=== PATIENT | male | born 1965 | race African-American/Black ===

== ENCOUNTER 2017-11-14 21:52 | Emergency (ER) | payer OTHER ==
[~2017-11-14] VITALS: Ht 182.9 cm; Wt 86.2 kg
[~2017-11-14 21:52] MED LIST: ASPI-484 PO; ATOR40TA PO; CARV6.25 PO; CLOP75TA52 PO; DIGO125T PO; LISI-414 PO; LISI10TA2 PO; SPIR25TA PO; SPIR50TA PO
[2017-11-14 21:53] VITALS: BP 138/109
--- NOTE | 2017-11-14 22:05 | PCM.EKG ---
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 Reading MD: Measurements Intervals [place] Rate: 93 P: 83 ME: 160 QRS: 72 QRSD: 100 T: 84 QT: 390 QTc: 484 Interpretive Statements Sinus rhythm Prolonged QT Abnormal ECG No previous ECG available for comparison Please click the below link to view image of tracing.
[2017-11-14 22:22] LABS: BASOPHIL % 0.6 % (0.0-0.2); EOSINOPHIL # 0.4 10^3/uL (0.0-0.2); EOSINOPHIL % 7.6 % (0.0-5.0); HEMOGLOBIN 13.6 g/dL (13.9-16.3); LYMPHOCYTES # 1.8 10^3/uL (1.0-4.8); LYMPHOCYTES % 34.7 % (24.0-44.0); MEAN CELL HGB 32.2 pg (26-34); MEAN CELL HGB CONCENTRATION 32.9 g/dL (33-37); MEAN CORP VOLUME 97.9 fL (78-100); MEAN PLATELET VOLUME 10.9 fL (7.8-11.0); MONOCYTES # 0.4 10^3/uL (0.3-0.8); NEUTROPHIL # 2.6 10^3/uL (1.8-7.7); NEUTROPHILS % 50.1 % (41.0-85.0); RED CELL DISTRIBUTION WIDTH 12.5 % (11.5-14.5); WHITE BLOOD CELL 5.3 10^3/uL (4.5-11.0)
--- NOTE | 2017-11-14 22:40 | DIREP ---
PROCEDURE:CHEST 1 VIEW COMPARISON:[facility], PAU, XRAY CHEST 2 VWS, 06/18/2017, 06:57 AM. [facility], CR, XRAY CHEST SINGLE VW, 10/20/2017, 11:18 AM. [facility], CR, XRAY CHEST SINGLE VW, 04/03/2016, 05:57 PM. INDICATIONS:Chest pain FINDINGS: LUNGS/PLEURA:No significant pulmonary parenchymal abnormalities. No effusions. VASCULATURE:Normal. Unremarkable pulmonary vasculature. CARDIAC: Heart shadow is enlarged but this is probably artifactual secondary AP technique. MEDIASTINUM:Normal. No visible mass or adenopathy. BONES:Normal. No fracture or visible bony lesion. OTHER:Negative. CONCLUSION: 1. No acute cardiopulmonary abnormality. Dictated by: Merrick Martinez Jr. on 11/14/2017 at 10:39 PM
[2017-11-14 23:04] LABS: ALANINE AMINOTRANSFERASE(ML) 21 U/L (12-78); ALKALINE PHOSPHATASE 69 U/L (50-136); ASPARTATE AMINO TRANSFERASE 13 U/L (0-35); CALCIUM 9.1 mg/dL (8.4-10.5); CARBON DIOXIDE 22.3 mmol/L (20.0-32); GLUCOSE 106 mg/dL (70-110)
--- NOTE | 2017-11-14 23:10 | NUR ---
DR ALIE ALEXANDER MBA SPEAKING WITH DR STRANGE , PATIENT TO BE DISCHARGED HOME , FOLLOW UP IN DR WANG OFFICE NEEDED
--- NOTE | 2017-11-14 23:20 | ER.PDOC ---
General Chief Complaint: Chest Pain-Cardiac Nature Stated Complaint: CHEST PAIN Time seen by MD: 22:00 Source: patient Exam Limitations: no limitations History of Present Illness Initial Comments Chest pain which started after patient was arrested. Timing/Duration: 1-3 hours Severity/Quality: moderate Radiation: no radiation Prior CP/Workup: Cardiac Cath Nitro Today/Relief: 0.4 mg x 1, No Relief Aspirin Today: 325 mg x 1, Provided By EMS Associated Symptoms: shortness of breath Prior symptoms/Treatment: Similar symptoms previous, Recenly Seen, Treated by Doctor Allergies: Coded Allergies: No Known Allergies (Unverified , 06/17/17) Home Meds Reported Medications Spironolactone 25MG (ALDACTONE 25MG) 25 Mg Tablet, 0.5 TAB PO DAILY, #90 TAB 1 Refill 06/17/17 Atorvastatin 40MG (LIPITOR 40MG) 40 Mg Tablet, 1 TAB PO DAILY, #30 TAB 5 Refills 07/27/16 Clopidogrel Bisulfate (PLAVIX) 75 Mg Tablet, 1 TAB PO DAILY, #30 TAB 5 Refills 07/27/16 Aspirin (ASPIR 81) 81 Mg Tablet.dr, 1 TAB PO DAILY, #30 TAB 5 Refills 07/27/16 Lisinopril (LISINOPRIL) 5 Mg Tablet, 1 TAB PO DAILY, #30 TAB 5 Refills 07/27/16 Carvedilol 6.25MG (COREG 6.25MG) 6.25 Mg Tablet, 1 TAB PO BID, #180 TAB 1 Refill 02/08/15 Digoxin (DIGOXIN) 125 Mcg Tablet, 1 TAB PO DAILY, #30 TAB 5 Refills 02/08/15 Past Medical History Medical History: cardiac problems, congestive heart failure, heart attack, hypertension Surgical History: stent Social History Smoking: non-smoker Alcohol Use: heavy Drug Use: none Constitutional: no symptoms reported EENTM: no symptoms reported Respiratory: see HPI Cardiovascular: see HPI Gastrointestinal: no symptoms reported Genitourinary: no symptoms reported All Other Systems: Reviewed and Negative Physical Exam General Appearance: No Apparent Distress, WD/WN HEENT: PERRL/EOMI Neck: Non-Tender, Full Range of Motion, Supple, Normal Inspection Respiratory: chest non-tender, lungs clear, normal breath sounds, no respiratory distress, no accessory muscle use Cardiovascular: Normal Peripheral Pulses, Regular Rate, Rhythm, No Edema, No Gallop, No JVD, No Murmur Gastrointestinal: Normal Bowel Sounds, No Organomegaly, No Pulsatile Mass, Non Tender, Soft Extremities: Normal Range of Motion, Non-Tender, Normal Inspection, No Pedal Edema, No Calf Tenderness, Normal Capillary Refill Neurologic/Psychiatric: 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 NML as Tested, No Motor/Sensory Deficits, Alert, Normal Mood/Affect, Oriented x 3 Skin: Normal Color Results/Orders Results/Orders Laboratory Tests Test 11/14/17 22:15 White Blood Count 5.3 10^3/uL (4.5-11.0) Red Blood Count 4.23 10^6/uL (4.50-5.90) Hemoglobin 13.6 g/dL (13.9-16.3) Hematocrit 41.4 % (37.0-53.0) Mean Corpuscular Volume 97.9 fL (78-100) Mean Corpuscular Hemoglobin 32.2 pg (26-34) Mean Corpuscular Hemoglobin Concent 32.9 g/dL (33-37) Red Cell Distribution Width 12.5 % (11.5-14.5) Platelet Count 185 10^3/uL (150-400) Mean Platelet Volume 10.9 fL (7.8-11.0) Neutrophils (%) (Auto) 50.1 % (41.0-85.0) Lymphocytes (%) (Auto) 34.7 % (24.0-44.0) Monocytes (%) (Auto) 7.0 % (5.0-12.0) Neutrophils # (Auto) 2.6 10^3/uL (1.8-7.7) Lymphocytes # (Auto) 1.8 10^3/uL (1.0-4.8) Monocytes # (Auto) 0.4 10^3/uL (0.3-0.8) Absolute Immature Granulocyte (auto 0 10^3 u/L (0-2) Eosinophils % 7.6 % (0.0-5.0) Basophils % 0.6 % (0.0-0.2) Basophils # 0.0 10^3/uL (0.0-0.1) Eosinophil Count 0.4 10^3/uL (0.0-0.2) Prothrombin Time 11.1 SEC (9.8-11.9) Prothrombin Time INR (Non-Therap) 1.1 Activated Partial Thromboplast Time 23.3 SEC (24.67-30.72) D-Dimer 0.45 mg/L (0.19-0.49) Sodium Level 141 mmol/L (132-145) Potassium Level 3.9 mmol/L (3.6-5.2) Chloride Level 107.0 mmol/L (96-109) Carbon Dioxide Level 22.3 mmol/L (20.0-32) Anion Gap 15.6 Blood Urea Nitrogen 15 mg/dL (7-18) Creatinine 1.14 mg/dL (0.59-1.40) Estimated GFR () 81.3 (>/=60) BUN/Creatinine Ratio 13.0 Glucose Level 106 mg/dL (70-110) Calcium Level 9.1 mg/dL (8.4-10.5) Total Bilirubin 0.5 mg/dL (0.2-1.0) Aspartate Amino Transf (AST/SGOT) 13 U/L (0-35) Alanine Aminotransferase (ALT/SGPT) 21 U/L (12-78) Alkaline Phosphatase 69 U/L (50-136) Total Creatine Kinase 128 U/L (39-308) Creatine Kinase MB 1.5 ng/mL (0.5-3.6) Troponin I < 0.02 ng/mL (0.00-0.05) Pro-B-Type Natriuretic Peptide 1511 pg/mL (0-125) Total Protein 7.3 g/dL (6.4-8.2) Albumin 3.6 g/dL (3.4-5.0) Globulin 3.7 Percent Immature Gran (Cell Imm) 0.00 % (0.00-0.50) Progress Progress Spoke to Dr. Pan who told me that patient has normal coronaries and should be good to go home. Patient recently saw him in the office last week. Patient feeling better. EKG/XRAY/CT/US EKG: NSR XRAY: chest (No active disease) Course Blood Pressure Systolic: 138 Blood Pressure Diastolic: 109 Blood Pressure Mean: 119 Departure Time of Disposition: 23:19 Disposition: 01 HOME, SELF-CARE Impression: Primary Impression: Nonspecific chest pain Condition: Stable Referrals: FARZAD KOWALSKI CEMENT [facility] APPRENTICE (PCP) PRIMARY CARE PROVIDER Additional Instructions: F/U with Dr. Pan next week Duration or Time Spent with Pa: 60 mins FILI ARANDA MD Nov 14, 2017 23:20
[2017-11-14 23:30] VITALS: BP 134/97
[2017-11-14 23:33] VITALS: BP 138/109
== END 2017-11-14 23:30 | disposition home or self-care (01) ==
LOC: ER 21:52 → EDBD 21:52 → ER 23:30
DX: R07.9 Chest pain, unspecified (principal); I11.0 Hypertensive heart disease with heart failure; I50.9 Heart failure, unspecified; I25.2 Old myocardial infarction; Z79.82 Long term (current) use of aspirin; Z79.899 Other long term (current) drug therapy
CPT/HCPCS: 36415; 71045; 80053; 82550; 82553; 83880; 84484; 85025; 85379; 85610; 85730; 93005; 99285

== ENCOUNTER → 2018-12-14 | Outpatient (CLI) | payer OTHER ==
--- NOTE | 2018-12-14 12:09 | ECHO ---
DATE OF SERVICE: 12/14/2018 FINDINGS: 1. The left ventricle is enlarged. There is severe global hypokinesis. No regional wall motion abnormalities are detected. 2. There is biatrial enlargement. 3. Aortic valve is normal three leaflet valve without stenosis or insufficiency. 4. Mitral valve is anatomically normal and there is no mitral regurgitation. 5. Right ventricle is of normal size and normal contractility. There are no pericardial effusions or extra cavitary masses. CONCLUSION: 1. Severe global hypokinesis. Left ventricular ejection fraction is estimated at 27%. 2. Biatrial enlargement. 3. Otherwise, normal echocardiogram. MARLO BONILLA MD DR: HI/kelly JOB# [id number]
== END | disposition home or self-care (01) ==
LOC: RT 10:34
DX: I11.0 Hypertensive heart disease with heart failure (principal); I50.33 Acute on chronic diastolic (congestive) heart failure
CPT/HCPCS: 93306; 93307